=== PATIENT | male | born 1980 | race Hispanic/Latino ===

== ENCOUNTER 2018-01-18 22:30 | Emergency (ER) | payer BC, OTHER ==
[2018-01-18 22:32] VITALS: BMI 35.7
[2018-01-18 23:15] VITALS: TEMP 98.8
--- NOTE | 2018-01-18 23:18 | ED PDOC ---
Arrival/HPI - History of Present Illness Narrative History of Present Illness (Text): 37 year old male with PMH of herniated disc in the neck and back who presents with upper back pain for the past hour. 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 He had numbness and tingling in the area that went away. Pain is described as a tightness, 5/10, nonradiating. He took Advill 200 mg PO x 2 without relief of pain. Pt denies direct trauma, fever, chills, chest pain, sob, abdominal pain, n/v/d, urinary complaints, or difficulty ambulating. PMH: herniated disc in the neck and back PSH: left knee reconstructive surgery 1996, right ankle surgery 2004 Meds: Advil as needed Allx: NKDA Social hx: (+) tobacco use via vape (3mg), (+) social etoh use, (-) illicit drug use 01/18/18 23:22 Time/Duration: 1 hour, 1-3 hours Symptom Onset: Sudden Symptom Course: Unchanged Quality: Tightness Severity Level: 5 Activities at Onset: Other (lifting a heavy pt) <Chandra Lora - Last Filed: 01/19/18 00:20> <Jg Cavazos - Last Filed: 01/19/18 00:27> - General Chief Complaint: Back Pain Time Seen by Provider: 01/18/18 22:36 Past Medical History - Provider Review Nursing Documentation Reviewed: Yes - Psychiatric Hx Psychophysiologic Disorder: No Hx Depression: No Hx Emotional Abuse: No Hx Physical Abuse: No Hx Substance Use: No - Surgical History Hx Tonsillectomy: Yes Other/Comment: left knee surgery 1996. triple orhothesis right ankle 2004 - Anesthesia Hx Anesthesia: Yes Hx Anesthesia Reactions: No Hx Malignant Hyperthermia: No - Suicidal Assessment Feels Threatened In Home Enviroment: No <Chandra Lora - Last Filed: 01/19/18 00:20> Family/Social History - Physician Review Nursing Documentation Reviewed: Yes Family/Social History: Unknown Family HX Smoking Status: vape Hx Alcohol Use: Yes Frequency of alcohol use: Socially Hx Substance Use: No Hx Substance Use Treatment: No <Chandra Lora - Last Filed: 01/19/18 00:20> Allergies/Home Meds <Rashida Lorariy - Last Filed: 01/19/18 00:20> <Jg Cavazos - Last Filed: 01/19/18 00:27> Allergies/Adverse Reactions: Allergies No Known Allergies Allergy (Verified 01/18/18 22:32) Physical Exam Vital Signs Temp Pulse Resp BP Pulse Ox 01/18/18 22:41 98.1 F 62 16 157/95 H 97 Temperature: Afebrile Blood Pressure: Hypertensive Pulse: Regular Respiratory Rate: Normal Appearance: Positive for: Well-Appearing, Non-Toxic, Comfortable Pain Distress: Mild Mental Status: Positive for: Alert and Oriented X 3 - Systems Exam Head: Present: Atraumatic, Normocephalic Extroacular Muscles: Present: EOMI Conjunctiva: Present: Normal Mouth: Present: Moist Mucous Membranes Neck: Present: Normal Range of Motion Respiratory/Chest: Present: Clear to Auscultation. No: Respiratory Distress, Accessory Muscle Use Cardiovascular: Present: Regular Rate and Rhythm, Normal S1, S2 Abdomen: Present: Normal Bowel Sounds. No: Tenderness Back: Present: Paraspinal Tenderness (left sided thoracic paravetebral hypertonicty with tenderness; limited ROM secondary to pain and hypertonicity). No: Midline Tenderness, Pain with Leg Raise Upper Extremity: Present: Normal Inspection, NORMAL PULSES Lower Extremity: Present: Normal Inspection, NORMAL PULSES. No: CALF TENDERNESS Neurological: Present: GCS=15 Skin: Present: Warm, Dry Psychiatric: Present: Alert <[email or web address] - Last Filed: 01/19/18 00:20> Vital Signs Temp Pulse Resp BP Pulse Ox 01/18/18 23:14 98.8 F 55 L 18 153/90 H 97 01/18/18 22:41 98.1 F 62 16 157/95 H 97 <Jg Cavazos - Last Filed: 01/19/18 00:27> Medical Decision Making ED Course and Treatment: EMT presents with back pain s/p lifting a 250 lb pt. Hypertonicity on exam with limited ROM; likely due to back strain. Toradol 60 IM, Valium 5 mg PO. Will reassess. On re-evaluation, pt reports the pain has improved to 2-3/10. Denies any acute changes in nature of pain or new symptoms. - Medication Orders Current Medication Orders: Diazepam (Valium) 5 mg PO ONCE ONE; Protocol Stop: 01/18/18 23:05 Ketorolac Tromethamine (Toradol) 60 mg IM STAT STA Stop: 01/18/18 23:04 Lidocaine (Lidoderm) 1 ea TD DAILY JAD <Chandra Lora - Last Filed: 01/19/18 00:20> ED Course and Treatment: Patient Seen with Resident: In agreement with resident note which contains more details about the patient. Patient seen and evaluated with resident. Came up with plan and treatment together. 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 Plan: -- Lidoderm, Toradol, Valium -- Reassess and disposition - Medication Orders Current Medication Orders: Lidocaine (Lidoderm) 1 ea TD DAILY JAD Discontinued Medications Diazepam (Valium) 5 mg PO ONCE ONE; Protocol Stop: 01/18/18 23:05 Last Admin: 01/18/18 23:36 Dose: 5 mg Ketorolac Tromethamine (Toradol) 60 mg IM STAT STA Stop: 01/18/18 23:04 Last Admin: 01/18/18 23:35 Dose: 60 mg MAR Pain Assessment Document 01/18/18 23:35 CNR (Rec: 01/18/18 23:35 CNR [id number]) Pain Reassessment Is this a pain reassessment? No IM Administration Charges Document 01/18/18 23:35 CNR (Rec: 01/18/18 23:35 CNR [id number]) Injection Site MAR Injection Site Left Deltoid Charges for Administration # of IM Administrations 1 <Jg Cavazos - Last Filed: 01/19/18 00:27> - Scribe Statement The provider has reviewed the documentation as recorded by the Ubaldo Schwartz Provider Scribe Attestation: All medical record entries made by the Scribe were at my direction and personally dictated by me. I have reviewed the chart and agree that the record accurately reflects my personal performance of the history, physical exam, medical decision making, and the department course for this patient. I have also personally directed, reviewed, and agree with the discharge instructions and disposition. <Jg Cavazos - Last Filed: 01/19/18 00:27> Disposition/Present on Arrival - Present on Arrival History of DVT/PE: No History of Uncontrolled Diabetes: No Urinary Catheter: No History of Decub. Ulcer: No History Surgical Site Infection Following: None <Chandra Lora - Last Filed: 01/19/18 00:20> - Present on Arrival Any Indicators Present on Arrival: No - Disposition Have Diagnosis and Disposition been Completed?: Yes Disposition Time: 23:46 Patient Plan: Discharge <Jg Cavazos - Last Filed: 01/19/18 00:27> - Disposition Diagnosis: Back pain Disposition: HOME/ ROUTINE Condition: IMPROVED Discharge Instructions (ExitCare): Upper Back Pain (DC) Prescriptions: Cyclobenzaprine [Flexeril] 5 mg PO PRN PRN #10 tab PRN Reason: Muscle Spasm Lidocaine 5% [Lidoderm] 1 ea TD Q12H #5 patch Naproxen 500 mg PO BID #10 Forms: [facility] (Romanian), WORK NOTE
[2018-01-19 00:13] VITALS: BP 146/82; PULSE 80; RESP 17; O2SAT 100
[2018-01-19] MEDS ORDERED: Lidocaine 5% Patch TD SCH (10:00)
[2018-01-19] MEDS ORDERED: Lidocaine 5% Patch TD ONE (23:46)
== END 2018-01-19 00:12 | disposition home or self-care (01) ==
LOC: ED 22:30
DX: M54.6 Pain in thoracic spine (principal)
CPT/HCPCS: 96372; 99283; J1885